=== PATIENT | male | born 1995 | race Caucasian/White ===

== ENCOUNTER 2017-03-04 20:40 | Emergency (ER) | payer OTHER ==
[~2017-03-04] VITALS: Ht 170.2 cm; Wt 90.0 kg
[2017-03-04 20:47] VITALS: Ht 170.2 cm; Wt 90.0 kg
[2017-03-04] MEDS ORDERED: IBUPROFEN 600 MG TAB PO ONE (23:00)
[2017-03-04] MEDS ORDERED: PENICILLIN G BENZ 1.2 MIL UNIT SYG IM ONE (23:00)
[2017-03-04] MEDS ORDERED: LIDOCAINE 1% (MDV) 20 ML INJ SC ONE (23:00)
--- NOTE | 2017-03-04 23:00 | ERD ---
ER Documentation Chief Complaint Chief Complaint Sore throat x 4 days HPI 21-year-old male, previously healthy, presents to the emergency department complaining of 4 days with worsening of sore throat associated with subjective fever, headache and general malaise. The patient has been taking Tylenol with mild improvement of the symptoms. Denies chills, difficulty breathing, no abdominal pain. ROS A 12-point review of systems was performed and negative other than presented in the history of present illness. SYSTEMIC symptoms: Subjective fever, chills, no night sweats, no weight loss EYE symptoms: No blurred vision, no eye discharge OTOLARYNGEAL symptoms: Per HPI CARDIOVASCULAR symptoms: No chest pain or discomfort, no palpitations. PULMONARY symptoms: No dyspnea, no cough, no wheezing. GASTROINTESTINAL symptoms: No abdominal pain, no nausea, no vomiting, no diarrhea MUSCULOSKELETAL symptoms: No arthralgias, no muscle aches. NEUROLOGY symptoms: No confusion, no syncope, no numbness or tingling. SKIN: No rashes Medications Home Meds Active Scripts Ibuprofen* (Motrin*) 600 Mg Tab, 600 MG PO Q6H Y for PAIN AND OR ELEVATED TEMP, #30 TAB Prov:DELILAH NASSAR MD 03/05/17 Azithromycin* (Zithromax*) 250 Mg Tablet, 250 MG PO .ZPACK DIRECTED, #6 TAB TAKE 500 MG (2 TABS) THE FIRST DAY THEN 250 MG (1 TAB) DAYS 2-5 Prov:DELILAH NASSAR MD 03/05/17 Allergies Allergies: Coded Allergies: No Known Allergy (Unverified , 01/03/13) PMhx/Soc Medical and Surgical Hx: pt denies Medical Hx, pt denies Surgical Hx History of Surgery: No Anesthesia Reaction: No Hx Neurological Disorder: No Hx Respiratory Disorders: No Hx Cardiac Disorders: No Hx Psychiatric Problems: No Hx Miscellaneous Medical Probl: No Hx Alcohol Use: No Hx Substance Use: No Hx Tobacco Use: No Smoking Status: Never smoker Physical Exam Vitals Vital Signs Date Time Temp Pulse Resp B/P Pulse Ox O2 Delivery O2 Flow Rate FiO2 03/04/17 20:47 99.0 112 133 88/99 7 Physical Exam Patient is in mild distress due to pain, vital signs stable. Alert and fully oriented. EYES: PERRLA, EOMI, Sclera and conjunctiva appear normal. EARS: Canals clear, tympanic membranes WNL THROAT: Erythematous oropharynx, tonsils enlarged with bilateral exudates NECK: Supple, No lymphadenopathy. Full ROM without pain or tenderness. HEART: RRR, no rubs, murmurs, clicks or gallops. LUNGS: Clear to auscultation. ABDOMEN: Soft, non-tender without masses or hepatosplenomegaly. EXTREMITIES: No edema bilaterally. BACK: Full ROM, no deformity, normal back exam NEURO: Cranial nerves grossly intact, no motor or sensory deficit Results 24 hrs Current Medications Medications (Trade) Dose Ordered Sig/Beatriz Route PRN Reason Start Time Stop Time Status Last Admin Dose Admin Penicillin G Benzathine (Bicillin La) 1,200,000 units ONCE ONCE IM 03/04/17 23:00 03/04/17 23:02 DC 03/05/17 00:01 Lidocaine (Xylocaine 1% (Mdv) 20 ml) 2 ml ONCE ONCE SC 03/04/17 23:00 03/04/17 23:38 DC Ibuprofen (Motrin) 600 mg ONCE ONCE PO 03/04/17 23:00 03/04/17 23:02 DC 03/05/17 00:06 Procedures/MDM 21-year-old male previously healthy presents with worsening of sore throat for 4 days. Vital signs stable, Physical exam revealed enlarged tonsils with exudate. Differential diagnosis include but not limited to: Viral/bacterial tonsillitis, low suspicion for tonsillar abscess. Physical examination and clinical presentation consistent most likely with strep tonsillitis. During the ED course the patient remained stable, no new complaints. The patient received treatment with Bicillin and ibuprofen presenting overall improvement of the symptoms. Results and clinical impression discussed with patient who agrees with management. The patient is stable to be treated outpatient and will be discharged home with a Rx for ibuprofen and azithromycin, some side effects of prescribed medications (headache, rash, nausea, vomiting, diarrhea, drowsiness, habituation, bleeding, hypertension, interactions with other medications) were reviewed. The patient was instructed to follow up with the primary care provider in the next 48h. If symptoms persist, worsen or new symptoms develop, then patient should return to the ED immediately. Instructions explained and given directly by me to the patient in Slovak with acknowledgment and demonstrated understanding. Disclaimer: Inadvertent spelling and grammatical errors are likely due to EHR/ dictation software use and do not reflect on the overall quality of patient care. Also, please note that the electronic time recorded on this note does not necessarily reflect the actual time of the patient encounter. Departure Diagnosis: Primary Impression: Acute suppurative tonsillitis Condition: Stable Additional Instructions: Call your primary care doctor TOMORROW for an appointment during the next 1-2 days. See the doctor sooner or return here if your condition worsens before your appointment time. Thank you very much for allowing us to participate in your care. Your health and safety is our top priority at [facility]. Have prescriptions filled and follow precisely the directions on the label. Follow-up with primary care provider during the next 4 days and bring all the information and medications prescribed. If illness has not improved in 2 days, then make an appointment with primary care provider. If the provider is unavailable, return to the Emergency Department immediately. DELILAH NASSAR MD Mar 04, 2017 23:00
[2017-03-05] MEDS ORDERED: AZIT250T94 PO (00:14)
[2017-03-05] MEDS ORDERED: IBUP-1542 PO (00:14)
[2017-03-05 00:36] VITALS: TEMP 98.8
== END 2017-03-05 00:37 | disposition home or self-care (01) ==
LOC: FTE 20:40
DX: J03.90 Acute tonsillitis, unspecified (principal)
CPT/HCPCS: 96372; J0561; Z7502; Z7610